=== PATIENT | female | born 1990 | race African-American/Black ===

== ENCOUNTER 2017-04-20 18:34 | Emergency (ER) | payer MEDICAID ==
[2017-04-20] MEDS: IBUPROFEN 600 MG TAB PO (21:33)
== END 2017-04-20 22:47 | disposition home or self-care (01) ==
LOC: FTE 18:34
DX: S93.401A Sprain of unspecified ligament of right ankle, initial encounter (principal); R40.2142 Coma scale, eyes open, spontaneous, at arrival to emergency department; R40.2252 Coma scale, best verbal response, oriented, at arrival to emergency department; R40.2362 Coma scale, best motor response, obeys commands, at arrival to emergency department; X58.XXXA Exposure to other specified factors, initial encounter; Y92.9 Unspecified place or not applicable
CPT/HCPCS: 29515; 73610-RT; 99283-25